=== PATIENT | male | born 1960 | race Caucasian/White ===

== ENCOUNTER 2022-05-20 13:11 | Emergency (ER) | payer BC, SELFPAY ==
[2022-05-20 13:30] VITALS: BP 137/80; PULSE 86; RESP 19; TEMP 36.7; O2SAT 97; BMI 35.5
[2022-05-20 13:45] VITALS: BP 137/80; PULSE 86; RESP 19; TEMP 36.7; O2SAT 97
--- NOTE | 2022-05-20 13:45 | EXP.UTC ---
Discharge Plan Disposition Patient Disposition: Home, Self-Care Condition: Good Prescriptions Prescriptions: New prednisone 10 mg tablet 10 mg PO BID 5 Days Qty: 10 0RF azithromycin [Zithromax Z-Gilmer] 250 mg tablet See Rx Instructions .ROUTE .COMPLEX 5 Days Qty: 6 0RF Rx Instructions: For 250 mg dose pack: take 500 mg today (day 1), then 250 mg for 4 days (days 2-5) benzonatate 100 mg capsule 100 mg PO TID PRN (Reason: cough) Qty: 30 0RF guaifenesin [Mucinex] 600 mg tablet extended release 12hr 600 - 1,200 mg PO BID PRN (Reason: cough/congestion) Qty: 20 0RF Referrals Follow up/Referrals: Rohith Calhoun MD [Primary Care Provider] - See instructions Activity Restrictions/Add. Instructions Additional Instructions/Restrictions: Start antibiotic today. Be sure to complete entire prescription even if feeling better Monitor temp. Tylenol every 4 hours as needed and / or ibuprofen every 6 hours as needed ( As long as your primary care physician has told you that it ok to take both. For fever/aches/pains ER if no less than 101 despite Tylenol or Motrin Humidifier/vaporizer or hot steamy shower Mucinex during the day for your cough and cough suppressant only at night. Be sure to drink lots of water. *Tessalon Perles will not cause drowsiness but use at bedtime to help stop cough so that you may get some rest. *Start steroid today. Helps with inflammation therefore, cough and wheezing. Follow directions on the package. Reviewed side effects. Patient reports taking them before. Follow up IMMEDIATELY for new or worsening of symptoms OR no noticeable improvement over the next 48-72 hours. 911 immediately for any life threatening symptoms such as chest pain or difficulty breathing Clinical Impressions Clinical Impression: Sinusitis, Bronchitis Instructions Patient Instructions: DI for Sinusitis, Sinusitis, Acute Bronchitis Discharge ED Provider: Carrie Sin [facility] General Stated complaint: Deep Cough, congestion Mode of Arrival: Ambulatory Source of Information: Patient Limitations: No Limitations Time Seen by Provider: 05/20/22 13:45 Description of Symptoms (Recalled from Triage Doc. 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 so he came in Related Data Previous Rx's Medication Instructions Recorded azithromycin 250 mg tablet See Rx Instructions PO .COMPLEX 5 05/20/22 (Zithromax Z-Gilmer) days #6 tabs benzonatate 100 mg capsule 100 mg PO TID PRN cough #30 caps 05/20/22 guaifenesin 600 mg tablet, 600 - 1,200 mg PO BID PRN 05/20/22 extended release 12 hr (Mucinex) cough/congestion #20 tabs prednisone 10 mg tablet 10 mg PO BID 5 days #10 tabs 05/20/22 Allergies Allergy/AdvReac Type Severity Reaction Status Date / Time No Known Allergies Allergy Verified 05/20/22 13:44 Worker's Comp Is this a Worker's Comp case?: No PFSH [facility] Disclaimer: The information contained in this section may have been updated after the patient was seen, as this information can be updated by other users. Social History Smoking Status: Never smoker alcohol intake: never substance use type: denies use current occupational status: employed Travel in the last 8 weeks: None ROS Obtained: Yes All systems reviewed & no additional complaints except as documented and Yes Systems reviewed as appropriate & no joseph
== END 2022-05-20 13:48 | disposition home or self-care (01) ==
PROVIDERS: Emergency Provider Nurse Practitioner; PCP Family Medicine
DX: J20.9 Acute bronchitis, unspecified (principal); J01.90 Acute sinusitis, unspecified
CPT/HCPCS: 99204; 99212; G0463

== ENCOUNTER 2024-01-15 09:06 | Outpatient (CLI) | payer BC, SELFPAY ==
--- NOTE | 2024-01-15 | CA_ITS ---
APPROVED REPORT Exam: Exercise Treadmill Technologist: Autumn Baldwin Ht: 5 ft 11 in Wt: 233 lbs BSA: 2.25 m2 HR: 86 bpm BP: 125/91 mmHg Stress Test Details Test: Exercise stress testing was performed using a Benjamin protocol. HR Resting HR: 86 bpm Max Heart Rate (APMHR): 158 bpm Max HR Achieved: 163 bpm Target HR (85% APMHR): 134 bpm % of APMHR: 103 Recovery HR: 119 bpm HR response to stress: Normal HR response to stress BP Resting BP: 125.0/91.0 mmHg Max BP: 162.0/90.0 mmHg Recovery BP: 119.0/89.0 mmHg BP response to stress: Normal blood pressure response to stress. ECG Resting ECG: NSR Stress EC.[address] depression Arrhythmia: PVCs Recovery ECG: Return to baseline within 3 minutes of recovery Recovery Arrhythmia: PVCs Clinical Exercise duration: 6:56 min Exercise capacity: 9.7 METs Stress ECG Conclusion Symptoms: Shortness of breath with exercise. Stopped due to leg fatigue and shortness of breath. Arrhythmias/Ectopy: PVCs noted with exercise and in recovery. ST-T Changes: 0.[address] depression. Conclusion: Average exercise capacity compared to age and sex matched peers. No ECG evidence of ischemia at peak stress. Electronically signed by : Candy Raphael MD 01/16/2024 23:46:51
== END 2024-01-15 23:59 | disposition home or self-care (01) ==
LOC: RT 09:07
PROVIDERS: PCP Family Medicine; Visit Provider Family Medicine
DX: R06.02 Shortness of breath (principal)
CPT/HCPCS: 93017; 93018

== ENCOUNTER 2024-06-10 07:49 | Day surgery (SDC) | payer BC, SELFPAY ==
[2024-06-05 14:13] VITALS: BMI 19.5
[2024-06-10 08:24] VITALS: BMI 33.5
[2024-06-10 08:27] VITALS: BP 160/85; PULSE 75; RESP 18; TEMP 36.4; O2SAT 98
[2024-06-10 08:36] LABS: POC Glucose,Bedside 112 (70-110)
--- NOTE | 2024-06-10 08:42 | EXP.ANES.CKL ---
[facility] Disclaimer: The information contained in this section may have been updated after the patient was seen, as this information can be updated by other users. Medical History Diabetes mellitus type 1 Surgical History (Updated 06/10/24 @ 08:26 by Maverick Lord RN) History of throat surgery Family History (Updated 06/10/24 @ 08:27 by Maverick Lord RN) Other No significant family history Social History Smoking Status: Never smoker alcohol intake: current substance use type: denies use current occupational status: employed Travel in the last 8 weeks?: None Have you lived/traveled outside [place] in past 30 days?: No Contact w/someone who lives/traveled outside US past 30 days?: No Exposure to someone with infectious disease in past 14 days?: No Do you have a fever (greater than 100.4 F or 38 C)?: No Have you tested positive for COVID-19?: No Exposed to someone with COVID-19 in past 14 days?: No Do you have a sore throat?: No Do you have a cough?: No Do you have any weakness?: No Are you experiencing any nausea/vomitting?: No Do you have any diarrhea?: No Are you experiencing any unusual bleeding?: No Do you have any muscle aches/pain?: No Do you have any abdominal pain?: No Are you experiencing loss of taste or smell?: No [facility] Anesthesia Checklist Patient Identification Patient Identification: Arm Band Structural Data Admitted From: Home Planned Operative Procedure/s: Colonoscopy Consent for Planned Operative Procedure(s) Verified: Yes Verified Documents: Surgical Consent and History and Physical NPO Status Verified Time NPO: 00:00 Additional verifications Anesthesia Reactions: No Airway Assessment Mallampati Score:: Class II C-Spine Mobility Assessed: Yes TMJ Mobility Assessed: Yes Dentition: Good Dentition Neurological Assessment Level of Consciousness: Awake, Alert and Appropriate Anesthesia Plan Anesthesia Risk discussed: Yes Anesthesia Plan: Verified ASA Class: II Anesthesia Type: MAC
[2024-06-10 09:18] VITALS: O2SAT 98
--- NOTE | 2024-06-10 09:18 | EXP.HP ---
History of Present Illness *Admission Date: 06/10/24 *Reason for visit:: Screening colonoscopy *History of present illness: Mr. Paredes is a 64-year-old gentleman who is here for screening colonoscopy. The examination is deemed medically necessary for screening colonoscopy. He has noticed the onset of some spotting of blood on the tissue with his bowel movements over the last 2 to 3 months. The patient has been seen, interviewed and examined prior to the procedure by both myself and the anesthesia provider. [facility] Disclaimer: The information contained in this section may have been updated after the patient was seen, as this information can be updated by other users. Medical History (Updated 06/10/24 @ 09:20 by Alen Sr II, MD) Diabetes mellitus type 1 Surgical History (Updated 06/10/24 @ 08:26 by Maverick Lord RN) History of throat surgery Family History (Updated 06/10/24 @ 08:27 by Maverick Lord RN) Other No significant family history Social History Smoking Status: Never smoker alcohol intake: current substance use type: denies use current occupational status: employed Travel in the last 8 weeks?: None Have you lived/traveled outside US in past 30 days?: No Contact w/someone who lives/traveled outside [place] past 30 days?: No Exposure to someone with infectious disease in past 14 days?: No Do you have a fever (greater than 100.4 F or 38 C)?: No Have you tested positive for COVID-19?: No Exposed to someone with COVID-19 in past 14 days?: No Do you have a sore throat?: No Do you have a cough?: No Do you have any weakness?: No Are you experiencing any nausea/vomitting?: No Do you have any diarrhea?: No Are you experiencing any unusual bleeding?: No Do you have any muscle aches/pain?: No Do you have any abdominal pain?: No Are you experiencing loss of taste or smell?: No Other Medical History Have you received the Pneumonia Vaccine: No Review of Systems Review of Systems Review of systems (narrative): Negative *Cardiovascular Comments: Negative *Gastrointestinal Comments: Negative *Genitourinary Comments: Negative *Musculoskeletal Comments: Negative *Neurologic Comments: Negative Meds Home Medications and Allergies Home Medications ?Medication ?Instructions ?Recorded ?Confirmed ?Type metformin 500 mg tablet,extended 500 mg PO DAILY 04/18/23 04/18/23 History release 24 hr New Prescriptions to Start Prescriptions: Allergies Allergy/AdvReac Type Severity Reaction Status Date / Time No Known Allergies Allergy Verified 06/05/24 12:38 Exam Data for Last 24 hours Vital signs and Labs for Last 24 Hours: Temp Pulse Resp BP Pulse Ox O2 Del Method 97.5 F L 75 18 160/85 H 98 Room Air 06/10/24 08:27 06/10/24 08:27 06/10/24 08:27 06/10/24 08:27 06/10/24 08:27 06/10/24 08:27 Laboratory Results - last 24 hr 06/10/24 08:28: POC Glucose 112 H I & O for Last 24 hours: Intake & Output 06/07/24 06/08/24 06/09/24 06/10/24 23:59 23:59 23:59 23:59 Weight 240 lb *Routine HEENT Exam Head: Present normocephalic Eye: Present EOMI and PERRL ENT: Present mucous membranes moist *Routine Neck Exam Neck: Present supple *Routine Respiratory Exam Respiratory: Present CTA bilaterally *Routine Cardiovascular Exam Cardiovascular: Present RRR *Routine Abdominal Exam Abdominal: Present soft and normoactive bowel sounds; Absent tenderness *Routine Rectal Exam Rectal:: deferred *Routine Genitalia Exam Genitalia:: deferred *Routine Extremities Exam Extremities: Absent cyanosis, clubbing or edema *Routine Skin Exam Skin: Present warm; Absent rash *Routine Neurological Exam Neurological: Present alert and oriented X3 Assessment and Plan *Assessment and plan (1) Screening for colon cancer: Status: Acute Category: Medical Code(s): Z12.11 - Encounter for screening for malignant neoplasm of colon (2) Blood present in stool: Status: Acute Category: Medical Code(s): K92.1 - Melena Plan A/P: 1. Screening for colon cancer is the preprocedural diagnosis. The patient will be anesthetized/sedated using MAC sedation. The patient has been seen and examined. Cardiac and lung assessment prior to the examination is stable. Proceed with planned screening colonoscopy.
--- NOTE | 2024-06-10 09:21 | P.PCN_ITS ---
[facility] Procedure Note Date: 06/10/24 Time: 09:38 Procedure Note:: Colonoscopy Procedure Report: Colonoscopy with cold snare polypectomy and cold biopsies Endoscopist: Alen Sr II, MD Referring physician: Rusty Workman MD Date of Procedure: June 10, 2024 Equipment: Olympus 190 variable stiffness pediatric colonoscope Sedation: MAC sedation Indication: Mr. Paredes is a 64-year-old gentleman who is referred for screening colonoscopy. His last colonoscopy was 14 or 15 years ago. He does state that over the last 2 to 3 months he has had some blood on the toilet tissue with his bowel movements and thinks this is possibly hemorrhoidal. He reports no abdominal pain, weight loss or change in his bowel habits. He does state that his paternal grandfather had colon cancer. Procedure: Prior to the procedure, a history and physical exam was performed, and patient's medications and allergies were reviewed. The risks, benefits and alternatives of the sedation and procedure were discussed with the patient. All questions were answered and informed consent was obtained. The patient was brought to the procedure room. Patient identification and proposed procedure were verified by the physician and the nurse. The patient was placed in a left lateral decubitus position and the scope was passed under direct vision. Throughout the procedure, the patient's blood pressure, pulse, and oxygen saturations were monitored continuously. The colonoscopy was accomplished without difficulty. The patient tolerated the procedure well. Findings: On digital rectal examination there was normal rectal tone. There were no external hemorrhoids. The colonoscope was introduced through the anal canal to the rectum and advanced to the cecum. The ileocecal valve and appendiceal orifice were identified. The scope was advanced a short distance into the ileum which appeared grossly normal. The scope was then withdrawn into the colon. There were 4 polyps (cecum x 1 (3 mm), descending x 2 (4 and 5 mm) and rectum x 1 (5 mm)). These were all removed via cold snare polypectomy. Within the rectosigmoid was a large friable/fungating mass that extended from 16 cm from the anal verge to 12 cm from the anal verge and was nearly circumferential/apple core (three quarters of the circumference) and along the anterior wall. Digitally this could be palpated but was beyond average finger length. This mass had some cavitation and spontaneous bleeding with friability. Multiple biopsies were obtained and cold snare sections were obtained to provide adequate pathology. There were scattered diverticuli throughout the descending and sigmoid colon (LEFT colon). The rectum itself was normal. Upon retroflexion within the rectum there were 1-2 internal hemorrhoids. The preparation was excellent throughout with [place] Preparation Score of 9. Impression: 1. 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 Additional diminutive colonic polyps x 4 3. Left-sided diverticulosis 4. Grade 1-2 internal hemorrhoids Plan: I will obtain imaging for staging. Because this is a low-lying rectosigmoid lesion, I will refer the patient to colorectal surgery. I will obtain CEA and iron studies. I will discuss the findings with the patient and family.
[2024-06-10 09:40] VITALS: BP 118/73; PULSE 88; RESP 17; TEMP 36.2; O2SAT 94
[2024-06-10 09:50] VITALS: BP 109/73; PULSE 84; RESP 17; O2SAT 95
[2024-06-10 10:00] VITALS: BP 111/73; PULSE 76; RESP 17; O2SAT 96
[2024-06-10 10:10] VITALS: BP 118/74; PULSE 77; RESP 17; TEMP 36.2; O2SAT 97
[2024-06-10 10:47] LABS: Basophils # 0.1 K/mm3 (0-0.2); Basophils % 0.9 % (0.1-2.0); Eosinophils # 0.2 Kmm3 (0.0-0.4); Eosinophils % 2.5 % (0.1-12.0); Hematocrit 48.7 % (42.0-52.0); Hemoglobin 16.1 g/dL (14.1-18.0); Lymphocytes # 2.1 K/mm3 (0.7-4.5); Lymphocytes % 25.4 % (10-50); Mean Corpuscular HGB Conc 33.1 g/dL (31.8-35.4); Mean Corpuscular Hemoglobin 27.6 pg (27.0-31.2); Mean Corpuscular Volume 83.5 fl (80-94); Mean Platelet Volume 9.8 fl (7.4-10.4); Monocytes # 0.9 K/mm3 (0.1-1.0); Monocytes % 10.1 % (1.7-9.3); Neutrophils # 5.2 K/mm3 (1.8-7.8); Nucleated Red Blood Cells # 0 10^3/uL; Nucleated Red Blood Cells % 0 %; Platelet Count 314 K/mm3 (142-424); Red Blood Count 5.83 M/mm3 (4.60-6.20); Red Cell Distribution Width 13.4 % (11.5-17.5); Red Cell Distribution Width-SD 40.7 fL; White Blood Count 8.4 K/mm3 (4.8-10.8)
[2024-06-10 10:52] LABS: Albumin Level 4.4 g/dl (3.5-5.0); Chloride 111 mmol/L (98-107); Sodium 139 mmol/L (136-145)
[2024-06-10 10:53] LABS: Potassium 4.6 mmoL/L (3.5-5.1)
[2024-06-10 10:55] LABS: Alanine Aminotransferase 24 U/L (12-78); Albumin/Globulin Ratio 1.4 (1.1-1.8); Alkaline Phosphatase 114 U/L (38-126); Anion Gap 9.6 mEq/L (5-15); Aspartate Amino Transferase 27 U/L (17-59); Bilirubin,Total 0.6 mg/dl (0.2-1.3); Blood Urea Nitrogen 12 mg/dl (9-20); Carbon Dioxide 23 mmol/L (22.0-30.0); Creatinine Clearance Estimated 116 mL/min (50-200); Estimated Glomerular Filt Rate 85 ml/min (>60); GFR (African American) 103 ML/MIN (>60); Globulin 3.1 g/dL (1.3-3.2); Total Protein,Serum 7.5 g/dl (6.3-8.2)
[2024-06-10 10:56] LABS: Calcium 10.3 mg/dl (8.4-10.2); Glucose 119 mg/dl (74-100); Iron 68 ug/dL (49-181)
[2024-06-10 11:05] LABS: Total Iron Binding Capacity 176 ug/dL (261-462)
[2024-06-10 11:33] LABS: Ferritin 150 ng/ml (17.9-464)
[2024-06-11 12:21] LABS: CEA 2.7 ng/mL (0.0-4.7)
== END 2024-06-10 10:21 | disposition home or self-care (01) ==
PROVIDERS: PCP Family Medicine; Visit Provider Internal Medicine Gastroenterology
PROC: 0DJD8ZZ Inspection of Lower Intestinal Tract, Via Natural or Artificial Opening Endoscopic (ICD-10-PCS; CPT 45378; principal; 2024-06-10 09:30)
DX: Z12.11 Encounter for screening for malignant neoplasm of colon (principal); K92.1 Melena; D12.7 Benign neoplasm of rectosigmoid junction; D12.4 Benign neoplasm of descending colon; K63.5 Polyp of colon; K57.30 Diverticulosis of large intestine without perforation or abscess without bleeding; K64.8 Other hemorrhoids
CPT/HCPCS: 45380; 45385; 36415; 80053; 82378; 82728; 82962; 83540; 83550; 85025; J2704

== ENCOUNTER 2024-06-17 09:41 | Outpatient (CLI) | payer BC, SELFPAY ==
--- NOTE | 2024-06-17 09:45 | CT_ITS ---
FINAL REPORT CLINICAL HISTORY: Preoperative staging of rectosigmoid colon cancer COMPARISON: None FINDINGS: CT ABDOMEN PELVIS WITH AND WITHOUT CONTRAST: There is a 2.0 cm cavitary mass in the medial right middle lobe of the lung, best seen on images #1 through 4 of series 5. This cavitary mass is lobular and thick-walled. No prior exams are available for comparison purposes. There is mild fatty infiltration of the liver. Multiple gallstones are present in the gallbladder. The spleen is unremarkable. The adrenals are normal. The pancreas is unremarkable. The kidneys enhance appropriately. Precontrast images demonstrate no nephrolithiasis. The appendix is normal in appearance. No free fluid is identified. There is a mass present in the colon at the rectosigmoid junction that measures 5.5 cm in length consistent with the patient's known rectosigmoid colon carcinoma. There is at least 1 perirectal node adjacent to this region, that measures 6 mm in size, best seen on image #100 of series 5. IMPRESSION: Cavitary mass in the medial right middle lobe, 2.0 cm in size, as described above. This may represent metastatic disease or postinflammatory change. Mass at the rectosigmoid junction, 5.5 cm in length, consistent with the patient's clinical history of rectosigmoid neoplasm. There is at least 1 perirectal node adjacent to this mass, measuring 6 mm in size. Reviewed, Interpreted and Dictated by Erik Burnette MD Transcribed by Susan Alvarado Authenticated and [facility]
[2024-06-17] MEDS: IOPAMIDOL-370 (76%);100ML BOTTLE 75 ML IV (10:09)
[2024-06-17] MEDS: SODIUM CHLORIDE 0.9% 10ML SYR (RAD ONLY) 10 ML IV (10:09)
[2024-06-17] MEDS: BARIUM SULFATE(READI-CAT2);450ML BOTTLE 450 ML PO (10:09)
== END 2024-06-17 23:59 | disposition home or self-care (01) ==
LOC: RAD 09:42
PROVIDERS: PCP Family Medicine; Visit Provider Internal Medicine Gastroenterology
DX: C19 Malignant neoplasm of rectosigmoid junction (principal); R91.8 Other nonspecific abnormal finding of lung field
CPT/HCPCS: 74178; Q9967